=== PATIENT | male | born 1995 | race Caucasian/White ===

== ENCOUNTER 2025-10-30 16:03 | Emergency (ER) | payer SELFPAY ==
--- OUTSIDE RECORDS SUMMARY | 2025-10-30 16:08 | XMS_ITS | Clinical Summary ---
Author Organization [facility] Address [address] [place] [address] Phone Care Team Providers Care Clerical Office Name Role Phone Kaila Johnson MD Primary Care Provider +1- [phone] Allergies Active Allergy Reactions Criticality Noted Date Comments Chloral Hydrate Other (See Comments) 05/16/2012 Made hyper and aggitation Unclassified Drug Unknown 05/16/2012 Bee sting Medications No known medications Active Problems Problem Noted Date Diagnosed Date Cigarette dependence 04/03/2016 Social History Tobacco Use Types Packs/Day Years Used Date Smoking Tobacco: Every Day Cigarettes 0.5 Last attempted to quit: 03/13/2016 Smokeless Tobacco: Never Alcohol Use Standard Drinks/Week Comments Yes 0 (1 standard drink = 0.6 oz pur e alcohol) Sex and Gender Information Value Date Recorded Sex Assigned at Not on file 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 Gender Identity Not on file Sexual Orientation Not on file Occupation Industry Job Start Date Job End Date Not on file Not on file Not on file Not on file Last Filed Vital Signs Vital Sign Reading Time Taken Comments Blood Pressure 124/64 02/28/2020 11:10 PM CDT Pulse 67 02/28/2020 10:16 PM CDT Temperature 37 C (98.6 F) 02/28/2020 10:16 PM CDT Respiratory Rate 16 02/28/2020 11:10 PM CDT Oxygen Saturation 99% 02/28/2020 11:10 PM CDT Inhaled Oxygen Concentration - - Weight 72.7 kg (160 lb 3.2 oz) 02/28/2020 10:16 PM CDT Height 188 cm (6' 2 ) 02/28/2020 10:16 PM CDT Body Mass Index 20.57 02/28/2020 10:16 PM CDT Plan of Treatment Health Maintenance Due Date Last Done Comments DTAP/TDAP/TD VACCINES (1 - Tdap) 2013 HEPATITIS B VACCINES (1 of 3 - 19+ 3-dose series) 03/2014 INFLUENZA VACCINE (#1) 2025 HPV VACCINES (No Doses Required) Completed Insurance WORKERS COMP Care Teams Clerical Office Relationship Specialty Start Date End Date Kaila Johnson MD [address] [place] [address] PCP - General Family Practice 09/11/15
[2025-10-30 16:09] VITALS: BP 124/79; PULSE 80; RESP 18; TEMP 36.7; O2SAT 97; BMI 22.4
--- OUTSIDE RECORDS SUMMARY | 2025-10-30 16:09 | XMS_ITS | Clinical Summary ---
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
--- OUTSIDE RECORDS SUMMARY | 2025-10-30 16:09 | XMS_ITS | Encounter Summary ---
Author Organization [facility] Address [address] [place] [address] Care Team Providers Care Glass Blowing Instructor Name Role Phone Kaila Johnson MD Primary Care Provider +1- [phone] Encounter Details Date Type Department Care Team (Late st Contact Info) Description 01/01/2016 Ancillary Orders [employer] [facility] [address] [place] [id number] Kaila Johnson MD [address] [place] [phone] Pharyngitis (Primary Dx) Social History Tobacco Use Types Packs/Day Years Used Date Smoking Tobacco: Never Smokeless Tobacco: Never Alcohol Use Standard Drinks/Week Comments No 0 (1 standard drink = 0.6 oz pur e alcohol) Sex and Gender Information Value Date Recorded Sex Assigned at Not on file 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 Normal two view cervical spine. 2. Soft tissue abnormalities are not evident. [id number] Narrative 01/01/2016 2:36 PM GRADE SCHOOL TEACHER Exam: XR NECK SOFT TISSUE Date/Time of Exam: 01/01/2016 9:39 AM Reason For Exam: Pharyngitis. Findings: AP and lateral projections of the neck demonstrates normal curvature. There is no evidence of fracture or listhesis. Disc spaces are preserved. Precervical soft tissue abnormalities are not evident. There are no radiopaque soft tissue foreign bodies within the esophagus. Lung apices are clear. Soft tissue calcifications are not evident. us Kaila Johnson MD DIAGNOSTIC IMAGING ORDERAB LES Final Result documented in this encounter Visit Diagnoses Diagnosis Pharyngitis- Primary Acute pharyngitis Pharyngitis Acute pharyngitis documented in this encounter Care Teams Glass Blowing Instructor Relationship Specialty Start Date End Date Kaila Johnson MD [address] [place] [address] PCP - General Family Practice 09/11/15 documented as of this encounter
--- OUTSIDE RECORDS SUMMARY | 2025-10-30 16:09 | XMS_ITS | Encounter Summary ---
Author Organization [facility] Address [address] [place] [address] Care Team Providers Care Soil Engineer Name Role Phone Kaila Johnson MD Primary Care Provider +1- [phone] Reason for Referral * Outpatient Services (Routine) - Closed Specialty Diagnoses / Procedures Referred By Contdinah t Referred To Contact Diagnoses Right knee pain Procedures MRI KNEE WO CONTRAST RIGHT Javi Rosa Sr., FNP [address] [place] [address] Phone: tel: fax: [facility] [address] [place] [address] Phone: tel: fax: Referral ID Status Reason Start Date Expiration Date Visits Re quested Visits Authorized [id number] Closed 06/01/2012 06/01/2013 1 1 Encounter Details Date Type Department Care Team (Late st Contact Info) Description 06/01/2012 Ancillary Orders [facility] [place] [address] [place] [id number] Javi Rosa Sr., FNP [address] [place], [place] [id number] Right knee pain Social History Tobacco Use Types Packs/Day Years Used Date Smoking Tobacco: Never Alcohol Use Standard Drinks/Week Comments No 0 (1 standard drink = 0.6 oz pur e alcohol) Sex and Gender Information Value Date Recorded Sex Assigned at Not on file 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 This is age indeterminate. Findings are associated with no osteochondral defects or loose bodies involving the joint space. See above for additional pertinent findings and details. klw - uploaded from [employer] - Narrative 06/06/2012 7:23 AM CDT MRI of the right knee. There are no prior studies available for comparisons. History of patella injury with patella repair with lateral knee pain. Patient also reports a history of ACL repair. Standard technique was performed without contrast. Findings: Patellofemoral joint alignment is preserved. Mild patellofemoral chondromalacia involving the medial facet. Postsurgical changes of the patella compatible with a patella repair. Extensor mechanism is intact. The medial and lateral collateral ligament complexes are intact. Anterior cruciate ligament and the posterior cruciate ligaments are intact. Menisci are intact. The lateral femoral condyle demonstrates a subchondral fracture which is age indeterminate which may account for the patient's clinical syndrome of lateral knee pain. Medial femoral condyle is unremarkable. No substantive chondromalacia involving the medial and lateral compartment. Transcriptions [facility] - 06/18/2012 2:02 PM CDT us Javi Rosa Sr., ARTS MANAGER MR ORDERABLES E dited documented in this encounter Visit Diagnoses Diagnosis Right knee pain Pain in joint, lower leg Right knee pain Pain in joint, lower leg documented in this encounter Care Teams Soil Engineer Relationship Specialty Start Date End Date Kaila Johnson MD [address] [place] [address] PCP - General Family Practice 09/11/15 documented as of this encounter
--- NOTE | 2025-10-30 16:15 | W.ED.PSYCHS ---
HPI - Psych General: Chief Complaint: Anxiety Stated Complaint: MHE Time Seen by Provider: 10/30/25 16:08 Source: patient Mode of arrival: ambulatory Limitations: no limitations History of Present Illness: 29-year-old male states that he has been having lots of stressors at home. States been having some anxiety due to this and feeling overwhelmed at times and depressed. Patient adamantly denies having any suicidal or homicidal thoughts. States he is not on any meds currently he states that he really needs someone to talk to about his stress. Denies any worse improved factors Associated symptoms: Deny depression Related Data Home Medications ?Medication ?Instructions ?Recorded ?Confirmed cetirizine 10 mg tablet (Zyrtec) 10 mg PO DAILY PRN 02/05/22 cyclobenzaprine 10 mg tablet 10 mg PO TID 02/05/22 gabapentin 300 mg capsule 300 mg PO TID 02/05/22 ibuprofen 400 mg tablet (IBU) 400 mg PO Q6H 02/05/22 ondansetron HCl 4 mg/5 mL oral 4 mg PO Q6H PRN 02/05/22 solution Previous Rx's ?Medication ?Instructions ?Recorded amitriptyline 25 mg tablet 25 mg PO DAILY #30 tabs 02/05/22 Allergies Allergy/AdvReac Type Severity Reaction Status Date / Time chloral hydrate Allergy Intermediate Unknown Verified 02/05/22 14:05 Review of Systems Const: Denies: fever(s), chills, body aches or change in appetite Eyes: Denies: blurry vision or eye discomfort ENMT: Denies: throat pain or dental pain Card: Denies: chest pain Resp: Denies: dyspnea GI: Denies: abdominal pain, nausea, vomiting or diarrhea : Denies: dysuria Musc: Denies: neck pain or back pain Skin/Breast: Denies: rash Neuro: Denies: headache(s) Psych: Denies: depression Zac/Lymph: Denies: easy bruising All/Imm: Denies: urticaria PFSH ED PFSH: Social History Smoking and tobacco/nicotine status: light tobacco/nicotine user Physical Exam Const: COMMON NORMALS: no acute distress, patient oriented x3 and healthy appearing HENMT: COMMON NORMALS: normocephalic and atraumatic HEAD & SCALP: normocephalic and atraumatic Neck/C-Spine: COMMON NORMALS: full ROM and supple Chest: COMMONS NORMALS: normal inspection of the chest Resp: COMMON NORMALS: normal respiratory effort Cardio: COMMON NORMALS: regular rate, regular rhythm and No murmurs present (Cardio) RATE: regular rate RHYTHM: regular rhythm Extremity: COMMON NORMALS: normal to inspection and full ROM Neuro: COMMON NORMALS: patient oriented x3, moves all extremities and no focal motor deficits Psych: COMMON NORMALS: mental status grossly normal, Normal thought process present and cooperative THOUGHT PROCESS: Normal thought process present THOUGHT CONTENT: No Suicidality present and No Homicidality present Skin: COMMON NORMALS: no rashes or lesions noted and no wounds GENERAL SKIN EXAM: no rashes or lesions noted Course Vital Signs: Vital signs: Vital Signs Temperature 98.0 F 10/30/25 16:09 Pulse Rate 80 10/30/25 16:09 Respiratory Rate 18 10/30/25 16:09 Blood Pressure 124/79 10/30/25 16:09 Pulse Oximetry 97 10/30/25 16:09 Oxygen Delivery Me thod Room Air 10/30/25 16:09 MDM - Psych Medical Decision Making Patient presents here with some depression along with anxiety. Patient is not suicidal homicidal denies having any suicidal thoughts at all. I feel patient is safe for discharge at this time did inform him of the crisis center and he is going to go over there after discharge to talk to them. Return if worsening Medical Records I reviewed the patient's medical records. No radiology studies performed this visit Discharge Plan Discharge Patient Disposition: Home Clinical Impression: Depression Condition: Stable Prescriptions: No Action gabapentin 300 mg capsule 300 mg PO TID cyclobenzaprine 10 mg tablet 10 mg PO TID ondansetron HCl 4 mg/5 mL solution 4 mg PO Q6H PRN cetirizine [Zyrtec] 10 mg tablet 10 mg PO DAILY PRN ibuprofen [IBU] 400 mg tablet 400 mg PO Q6H amitriptyline 25 mg tablet 25 mg PO DAILY Qty: 30 5RF Discharge Orders: Discharge ED (Routine); Ordered 10/30/25 Ordered By: Gilbert Swift Referrals: Kaila Johnson MD [Primary Care Provider, Family Practice] Discharge Diet: Advance as tolerated Discharge Activity: Resume usual activity Patient Instructions: Depression (ED) Print Language: Uzbek Coding Level of Care Code ED Special Tester for Minda Jeffrey
== END 2025-10-30 16:33 | disposition home or self-care (01) ==
PROVIDERS: Emergency Provider Emergency Medicine; Family Provider Family Medicine; PCP Family Medicine
DX: F32.A Depression, unspecified (principal); Z72.0 Tobacco use
CPT/HCPCS: 99283